=== PATIENT | male | born 1955 | race Hispanic/Latino ===

== ENCOUNTER 2016-11-04 07:59 | Inpatient (IN) | payer BC ==
[2016-11-04] MEDS ORDERED: Sodium Chloride 0.9% 1,000 ML IV STA (08:19)
--- NOTE | 2016-11-04 08:22 | ED PDOC ---
Arrival/HPI - General Chief Complaint: Syncope Time Seen by Provider: 11/04/16 08:10 Historian: Patient - History of Present Illness Narrative History of Present Illness (Text): 11/04/16 08:19 61 year old male, whose past medical history includes anxiety attacks and multiple umbilical hernia repair surgeries, presents to the emergency department after a near-syncope episode prior to arrival. Patient states that he 's been having frequent "dark tarry stool" that began two days ago. Patient reports he went to the bathroom and began sweating and once he began walking back to bed, felt lightheaded and began to black out. Patient reports to be back on Zoloft 100mg for a week from work stress after not taking it for a year. He reports to be a coffee drinker, takes Advil every couple days and limited food, but denies alcohol abuse, loss of consciousness, any fever, chills , chest pain, shortness of breath, nausea, vomiting, diarrhea, urinary symptoms , back pain, neck pain, headache, dizziness, or any other complaints. PMD: Dr. Wise Time/Duration: Other (yesterday ) Symptom Course: Unchanged Activities at Onset: Light Context: Work Past Medical History - Provider Review Nursing Documentation Reviewed: Yes - Cardiac Hx Cardiac Disorders: Yes (WPW) Hx Cardiac Arrhythmia: Yes - Pulmonary Hx Respiratory Disorders: No - Neurological Hx Neurological Disorder: No - HEENT Hx HEENT Disorder: No - Renal Hx Renal Disorder: No - Endocrine/Metabolic Hx Endocrine Disorders: No - Hematological/Oncological Hx Blood Disorders: No - Integumentary Hx Dermatological Disorder: No - Musculoskeletal/Rheumatological Hx Musculoskeletal Disorders: No - Gastrointestinal Hx Gastrointestinal Disorders: Yes (hernia) - Genitourinary/Gynecological Hx Genitourinary Disorders: No - Psychiatric Hx Psychophysiologic Disorder: Yes Hx Anxiety: Yes Hx Depression: Yes Hx Substance Use: No - Surgical History Hx Cholecystectomy: Yes Family/Social History - Physician Review Nursing Documentation Reviewed: Yes Family/Social History: No Known Family HX Smoking Status: Never Smoked Hx Alcohol Use: No Hx Substance Use: No Allergies/Home Meds Allergies/Adverse Reactions: Allergies Penicillins Allergy (Verified 11/04/16 08:05) ANAPHYLAXIS Sulfa (Sulfonamide Antibiotics) Allergy (Verified 11/04/16 08:05) RASH fruit Allergy (Uncoded 11/04/16 08:05) RASH Home Medications: Home Meds Medication Instructions Recorded Confirmed Sertraline [Zoloft] 100 mg PO DAILY 11/04/16 11/04/16 clonazePAM [Klonopin] 2 mg PO HS 11/04/16 11/04/16 Review of Systems - Physician Review All systems were reviewed & negative as marked: Yes - Review of Systems Constitutional: Other (Sweats). absent: Fevers Respiratory: absent: SOB Cardiovascular: Syncope (near-syncope). absent: Chest Pain Gastrointestinal: Stool Changes ("Dark tarry stool"), Appetite Changes (limited food). absent: Abdominal Pain, Nausea, Vomiting Genitourinary Male: absent: Dysuria, Frequency, Hematuria Musculoskeletal: absent: Back Pain, Neck Pain Neurological: absent: Headache, Dizziness, Other (Loss of consciousness) Physical Exam Vital Signs Reviewed: Yes Vital Signs Temp Pulse Resp BP Pulse Ox 11/04/16 10:36 98.2 F 76 19 119/51 L 99 11/04/16 09:22 86 19 117/75 97 11/04/16 08:27 61 19 115/65 98 11/04/16 08:09 97.6 F 84 15 103/66 98 Temperature: Afebrile Blood Pressure: Normal Respiratory Rate: Normal Appearance: Positive for: Well-Appearing, Non-Toxic, Comfortable Pain Distress: None Mental Status: Positive for: Alert and Oriented X 3 - Systems Exam Head: Present: Atraumatic, Normocephalic Pupils: Present: PERRL Extroacular Muscles: Present: EOMI Conjunctiva: Present: Other (conjuctiva pink) Mouth: Present: Moist Mucous Membranes Neck: Present: Normal Range of Motion Respiratory/Chest: Present: Clear to Auscultation, Good Air Exchange. No: Respiratory Distress, Accessory Muscle Use Cardiovascular: Present: Regular Rate and Rhythm, Normal S1, S2. No: Murmurs Abdomen: Present: Normal Bowel Sounds. No: Tenderness, Distention, Peritoneal Signs Rectal: Present: Melena (Guaiac positive). No: Hemorrhoids Back: Present: Normal Inspection Upper Extremity: Present: Normal Inspection. No: Cyanosis, Edema Lower Extremity: Present: Normal Inspection. No: Edema Neurological: Present: GCS=15, CN II-XII Intact, Speech Normal Skin: Present: Warm, Dry, Pale. No: Rashes Psychiatric: Present: Alert, Oriented x 3, Normal Insight, Normal Concentration Medical Decision Making ED Course and Treatment: 11/04/16 08:19 Impression: 61 year old male presents complaining of melena stool and near-syncope episode after taking Zoloft for a week. Differential Diagnosis included but are not limited to: GI Bleed VS Systematic Anemia VS Syncope Plan: -- EKG -- Labs -- CXR -- Protonix Inj -- IV Fluids -- Fingerstick -- Urinalysis -- Reassess and disposition Progress Notes: 11/04/16 09:16 Rectal exam performed by me, chaperoned by EMT Charles, which showed melena stool guaiac positive, but negative for hemorrhoid. Chest X-ray Dictated By: Rene Deluca MD Dictated Date/Time: 11/04/16 09:01 Other Findings: None Impression: No active disease 11/04/16 09:[address] Wise who is aware and agrees with the plan. Accepts patient into service. Patient will go to telemetry fpr GI bleed with active bleeding and syncope. Dr. Wise requested Dr. Armstrong and Dr. Lovell. Consults were placed. Patient is stable for telemetry. - Lab Interpretations Lab Results: 11/04/16 08:29 11/04/16 08:29 Lab Results 11/04/16 09:20: Blood Type Confirm A POSITIVE 11/04/16 08:29: Blood Type A POSITIVE, Antibody Screen Negative, BBK History Checked No verified bt 11/04/16 08:29: Sodium 140, Potassium 3.8, Chloride 104, Carbon Dioxide 26, Anion Gap 14, BUN 25 H, Creatinine 1.0, Est GFR ( Amer) > 60, Est GFR ( Non-Af Amer) > 60, Random Glucose 119 H, Calcium 8.8, Total Bilirubin 0.9, AST 29, ALT 31, Alkaline Phosphatase 53, Lactate Dehydrogenase 349, Total Creatine Kinase 170, Troponin I < 0.01, Total Protein 6.5, Albumin 3.9, Globulin 2.6, Albumin/Globulin Ratio 1.5, Amylase 84, Lipase 301 H 11/04/16 08:29: PT 10.9, INR 1.01, APTT 23.3 L 11/04/16 08:29: WBC 7.5, RBC 4.39, Hgb 13.7 L, Hct 38.8 L, MCV 88.4, MCH 31.2, MCHC 35.3, RDW 13.6, Plt Count 191, MPV 10.3, Gran % 62.3, Lymph % (Auto) 27.2, [place] % (Auto) 7.0 H, Eos % (Auto) 2.7, Baso % (Auto) 0.8, Gran # 4.65, Lymph # 2.0, [place] # 0.5, Eos # 0.2, Baso # 0.06 11/04/16 08:26: POC Glucose (mg/dL) 98 I have reviewed the lab results: Yes - RAD Interpretation Radiology Orders: 11/04/16 08:18 CHEST PORTABLE [RAD] Stat - EKG Interpretation Interpreted by ED Physician: Yes Type: 12 lead EKG - Medication Orders Current Medication Orders: Sodium Chloride (Sodium Chloride 0.45%) 1,000 mls @ 80 mls/hr IV .[id number] [facility] Last Admin: 11/04/16 11:37 Dose: 80 mls/hr Pantoprazole Sodium (Protonix 40mg Ivpb) 40 mg in 100 mls @ 20 mls/hr IVPB .Q5H [facility] Last Admin: 11/04/16 14:37 Dose: 20 mls/hr Discontinued Medications Sodium Chloride (Sodium Chloride 0.9%) 1,000 mls @ 999 mls/hr IV .Q1H1M STA Stop: 11/04/16 09:19 Last Admin: 11/04/16 08:52 Dose: 999 mls/hr Pantoprazole Sodium (Protonix Inj) 80 mg IVP STAT STA Stop: 11/04/16 08:18 Last Admin: 11/04/16 08:52 Dose: 80 mg Pantoprazole Sodium (Protonix Inj) 40 mg IVP BID STA Stop: 11/04/16 10:03 Last Admin: 11/04/16 10:24 Dose: - Scribe Statement The provider has reviewed the documentation as recorded by the Cataibmarcia Connelly All medical record entries made by the Cataibmarcia were at my direction and personally dictated by me. I have reviewed the chart and agree that the record accurately reflects my personal performance of the history, physical exam, medical decision making, and the department course for this patient. I have also personally directed, reviewed, and agree with the discharge instructions and disposition. Disposition/Present on Arrival - Present on Arrival Any Indicators Present on Arrival: No History of DVT/PE: No History of Uncontrolled Diabetes: No Urinary Catheter: No History of Decub. Ulcer: No History Surgical Site Infection Following: None - Disposition Have Diagnosis and Disposition been Completed?: Yes Diagnosis: GI bleed, Syncope Disposition: HOSPITALIZED Disposition Time: 09:56 Patient Plan: Admission Condition: GOOD
[2016-11-04 08:35] LABS: BASO # 0.06 K/mm3 (0.0-2.0); BASO % 0.8 % (0.0-3.0); EOS # 0.2 (0.0-0.7); EOS % 2.7 % (1.5-5.0); GRAN # 4.65 (1.4-6.5); GRAN % 62.3 % (50.0-68.0); HEMATOCRIT 38.8 % (42.0-52.0); LYMPH % 27.2 % (22.0-35.0); MEAN CELL VOLUME 88.4 fl (80.0-105.0); MEAN CORPUSCULAR HEMOGLOBIN 31.2 pg (25.0-35.0); MEAN CORPUSCULAR HGB CONC 35.3 g/dl (31.0-37.0); MEAN PLATELET VOLUME 10.3 fl (7.0-11.0); MONO # 0.5 (0.1-0.6); RED CELL DISTRIBUTION WIDTH 13.6 % (11.5-14.5); WHITE BLOOD COUNT 7.5 10^3/ul (4.5-11.0)
[2016-11-04 08:45] LABS: INR 1.01 (0.93-1.08); PARTIAL THROMBOPLASTIN TIME 23.3 Seconds (23.7-30.8)
[2016-11-04 08:51] LABS: ALB/GLOB RATIO 1.5 (1.1-1.8); ALKALINE PHOSPHATASE 53 U/L (38-126); ALT/SGPT 31 U/L (7-56); AMYLASE 84 U/L (35-125); AST/SGOT 29 U/L (17-59); BILIRUBIN,TOTAL 0.9 mg/dL (0.2-1.3); BLOOD UREA NITROGEN 25 mg/dL (7-21); CALCIUM 8.8 mg/dL (8.4-10.5); CARBON DIOXIDE 26 mmol/L (21-33); CHLORIDE 104 mmol/L (98-107); GFR AFRICAN-AMERICAN > 60; GLUCOSE,RANDOM 119 mg/dL (70-110); LIPASE 301 U/L (23-300); POTASSIUM 3.8 mmol/L (3.6-5.0); SODIUM 140 mmol/L (132-148); TOTAL PROTEIN 6.5 g/dL (5.8-8.3)
[2016-11-04 09:02] LABS: TROPONIN I < 0.01 ng/mL
--- NOTE | 2016-11-04 09:02 | RAD ---
HISTORY: syncope COMPARISON: No prior. FINDINGS: LUNGS: No active pulmonary disease. PLEURA: No significant pleural effusion identified, no pneumothorax apparent. CARDIOVASCULAR: Normal. OSSEOUS STRUCTURES: No significant abnormalities. VISUALIZED UPPER ABDOMEN: Normal. OTHER FINDINGS: None. IMPRESSION: No active disease.
[2016-11-04] MEDS: Sodium Chloride 0.45% 1,000 ML IV SCH ×2 (11:37→22:37)
[2016-11-04 12:46] VITALS: BMI 25.5
--- NOTE | 2016-11-04 13:29 | HP ---
HISTORY OF PRESENT ILLNESS: I know Crispin for a very long time. He comes to the office. He presents to the emergency room with his with a syncopal episode, near syncope, with dark-tarry stools that began 2 days ago, also with sweating. He also started Zoloft 100 mg after too much stress at work. He has been off this for a year. He also takes Advil every day for chronic back pain he has. He comes in with dark black stools, in the ER, guaiac positive and near syncope, first time he has that. PAST MEDICAL HISTORY: He has a history of Angela Parkinson's White arrhythmia. He does have a hernia for many years. He has had anxious and depression. PAST SURGICAL HISTORY: He has had a cholecystectomy in the past. FAMILY HISTORY: Hypertension in the family. SOCIAL HISTORY: Never smoked. No alcohol. No drugs. ALLERGIES: HE HAS ALLERGIES TO PENICILLIN, SULFA AND FRUIT. MEDICATIONS: He was taking Zoloft 100 mg which he started about a week ago and Klonopin 2 mg at bedtime from a psychiatrist. REVIEW OF SYSTEMS: No acute vision or hearing changes. No sore throat. No neck pain. He was sweating. He did loose consciousness almost, witnessed it and felt it was nearest to his bed. No shortness of breath. No chest pain. No palpitations. He is stating having dark tarry stools for 2 days. Not eating that much. No nausea or vomiting. No problems urinating. He does have a chronic back pain, but none at this time. No headache or dizziness. There is questionable loss of consciousness. Story changed for few times. PHYSICAL EXAMINATION GENERAL: He is well appearing and comfortable at this time. Alert and oriented x3. VITAL SIGNS: He has 97.6 temperature, 84 pulse, 15 respiratory rate, 115/65 blood pressure, and 98% O2 saturations on room air. HEENT: His head is atraumatic and normocephalic. Extraocular muscles are intact. Pupils are equal and reactive to light and accommodation. Throat is moist. NECK: Supple. HEART: Regular rate, normal S1 and S2 at this time. LUNGS: Decreased breath sounds. Clear to auscultation. No wheezes. No rhonchi. No rales. ABDOMEN: Completely soft, nontender, and positive bowel sounds. No guarding. No rebound. No CVA tenderness. He points to this hernia as in his belly, it has been there for very long time. RECTAL: Rectal exam done in emergency room which is guaiac positive with melena and black stools. EXTREMITIES: Legs at this time move all, in all directions with no problems. He has no edema. NEUROLOGIC: GCS is 15. Cranial nerves II through XII grossly intact. Normal speech. Alert and oriented x3. SKIN: Warm and dry. No rash. No ulcers. LYMPH: Thyroid midline. No palpable or appreciable lymphadenopathy. LABORATORY DATA: He has multiple test done. He has 140 sodium, potassium of 3.8, BUN of 25, creatinine of 1, GFR is greater than 60, sugar is 119, calcium is 8.8, and total bilirubin 0.9. AST is 29, ALT is 31, alkaline phosphatase is 53, and lactic dehydrogenase is 349. Total creatine kinase is 170. Troponin is less than 0.01. Total protein is 6.5. Albumin is 3.9 and globulin is 2.6. Amylase is 84 and lipase is up at 301. INR is 1.01. He has hemoglobin of 13.7, and hematocrit of 38.8, I checked 2 days of black stools and 191 platelets. IMPRESSION AND PLAN: I am going to order a CAT scan of his abdomen and pelvis. Make him n.p.o. and intravenous fluids. ES with Dr. Zapien who is his inspector missile and I have called a neurology for his near syncopal episode. We will check his laboratories tomorrow. Keep him as comfortable as possible. Hussein Wise DO MTDD
--- NOTE | 2016-11-04 14:32 | CT ---
PROCEDURE: CT Abdomen and Pelvis without intravenous contrast HISTORY: gi bleed COMPARISON: None. TECHNIQUE: Without contrast. Contrast Dose: Radiation dose: Total exam DLP = 491 mGy-cm. This CT exam was performed using one or more of the following dose reduction techniques: Automated exposure control, adjustment of the mA and/or kV according to patient size, and/or use of iterative reconstruction technique. FINDINGS: LOWER THORAX: Unremarkable. LIVER: Unremarkable. No gross lesion or ductal dilatation. GALLBLADDER AND BILE DUCTS: Gallbladder removed PANCREAS: Unremarkable. No gross lesion or ductal dilatation. SPLEEN: Unremarkable. ADRENALS: Unremarkable. No mass. KIDNEYS AND URETERS: Unremarkable. No hydronephrosis. No solid mass. VASCULATURE: Unremarkable. No aortic aneurysm. BOWEL: Unremarkable. No obstruction. No gross mural thickening. APPENDIX: Unremarkable. Normal appendix. PERITONEUM: Unremarkable. No free fluid. No free air. There is a small ventral hernia measuring 3 cm in diameter. This contains a segment of bowel but there is no evidence of obstruction. Findings are seen on axial image 91 LYMPH NODES: Unremarkable. No enlarged lymph nodes. BLADDER: Unremarkable. REPRODUCTIVE: Unremarkable. BONES: No acute fracture. OTHER FINDINGS: None. IMPRESSION: Small midline ventral hernia without evidence of obstruction.
[2016-11-04] MEDS: Pantoprazole 40mg/100ml IVPB 40 MG/100 ML BAG IVPB SCH ×3 (14:37→22:37)
[2016-11-04 15:42] LABS: HEMATOCRIT 36.7 % (42.0-52.0)
--- NOTE | 2016-11-04 18:11 | CARD ---
APPROVED REPORT EKG Measurement Heart [id number] <Conclusion> Sinus rhythm with fusion complexes Otherwise normal ECG
[2016-11-04 20:55] LABS: HEMATOCRIT 37.6 % (42.0-52.0)
--- NOTE | 2016-11-05 00:03 | CON ---
DATE: 11/04/2016 REASON FOR CONSULTATION: GI bleeding. HISTORY OF PRESENT ILLNESS: This 61-year-old patient with a history of anxiety, recently started on Zoloft a week ago, noticed dark stool on Saturday evening that was two days ago, small amounts like smears of black stool. Yesterday, he continued to have episodes of this black stool, came to the emergency room this morning. The patient had a large amount of dark black tarry stools at 9 a.m. and he also felt very dizzy. The patient has history of some hamstring strain and he has been taking Advil for nearly two months up to 600 mg a day. No complaints of abdominal pain. No vomiting. No similar previous episodes. OTHER PAST MEDICAL HISTORY: As above. History of umbilical hernia surgery done in the past. History of cardiac dysrhythmia, Mmcp-Mxybwajvp-Ucuau syndrome, also history of status post cholecystectomy, anxiety, and depression. FAMILY HISTORY: Noncontributory. SOCIAL HISTORY: Denies smoking. No alcohol. REVIEW OF SYSTEMS: Positive as above. Other systems reviewed. ALLERGIES: HE IS ALLERGIC TO PENICILLIN AND SULFA. PHYSICAL EXAMINATION: GENERAL: The patient is lying on the bed, not in acute distress. VITAL SIGNS: Temperature 97.9, blood pressure 130/67, pulse 85. HEENT: Atraumatic, anicteric. NECK: Supple. HEART: S1 and S2 heard. LUNGS: Bilateral air entry present. ABDOMEN: Soft, there was no mass palpable. No tenderness. EXTREMITIES: No edema. NEUROLOGIC: Alert and oriented. Moves all the extremities. LABORATORY DATA: Hemoglobin 13.7, hematocrit 38.8, WBC 7.5, platelets 191. BUN 25, creatinine 1.0. Lipase mildly elevated, 301. IMPRESSION: This 61-year-old patient with history of nonsteroidal antiinflammatory drug use for nearly about two months, started on Zoloft for the last week ago, now has episodes of melena, positive history of upper gastrointestinal bleeding. The patient appears to be hemoglobin initially was 13.7, but the patient did have another episode of black stool. He had dizziness. The most likely cause is probably the upper gastrointestinal bleeding from the peptic ulcerations due to relative combination of the nonsteroidal antiinflammatory drug plus Zoloft. Zoloft also can cause platelet dysfunction and causes inhibition of the platelet aggregation. PLAN: 1. The plan is to check orthostatics. 2. Follow up of the hemoglobin, hematocrit closely. 3. Keep the patient n.p.o. 4. If any significant bleeding, further bleeding or drop in blood count, we will consider transferring the patient to the ICU. 5. We will consider upper GI endoscopy based on the clinical course and the timing. The patient is also scheduled for having a CAT scan of the abdomen and the patient did have a contrast finished just before I saw the patient today. Awaiting for the patient to go down for the CAT scan. We will continue to closely follow up his care and suggest further management based on the clinical course. I have discussed this case also with Dr. Wise. Thank you very much for allowing us to participate in the care of the patient. Nidia Zapien MD
[2016-11-05 00:11] LABS: URINE BILIRUBIN NEGATIVE (NEGATIVE); URINE BLOOD TRACE-INTACT (NEGATIVE); URINE GLUCOSE (UA) NEGATIVE (NEGATIVE); URINE KETONE 40 mg/dL (NEGATIVE); URINE LEUKOCYTE ESTERASE NEGATIVE Leu/uL (NEGATIVE); URINE PROTEIN NEGATIVE mg/dL (<30 mg/dL)
[2016-11-05 00:15] LABS: URINE APPEARANCE SL CLOUDY (CLEAR); URINE COLOR YELLOW (YELLOW)
[2016-11-05 00:21] LABS: URINE BACTERIA FEW (NEG); URINE WBC 0 - 2 /hpf (0-6)
[2016-11-05 02:47] LABS: HEMATOCRIT 37.3 % (42.0-52.0)
[2016-11-05] MEDS: Pantoprazole 40mg/100ml IVPB 40 MG/100 ML BAG IVPB SCH (04:12)
--- NOTE | 2016-11-05 06:31 | CON ---
DATE: HISTORY OF PRESENT ILLNESS: This is a 61-year-old white male with a past medical history of WPW syndrome and came to hospital with a dark stool, which started two days ago and had a near syncopal episode and called to evaluate the patient. GI workup on the way and no more passing out spells. The patient was Coag-positive. PAST MEDICAL HISTORY: WPW syndrome, and the patient has anxiety and depression. PAST SURGICAL HISTORY: Status post cholecystectomy. ALLERGIES: PENICILLIN, SULFA. REVIEW OF SYSTEMS: A 10-point review of system was negative except episode of near syncopal episode. PHYSICAL EXAMINATION: HEENT: Normocephalic, atraumatic. NECK: Supple. NEUROLOGIC: Alert, awake, and oriented x3. No aphasia. Cranial nerves II through XII are tested. Pupils are reactive. EOM intact. Visual burleson full. No facial asymmetry. Tongue midline. Motor examination, spontaneous movement of all the extremities noted. Deep tendon reflexes is 1+. Both plantars are downgoing. Sensory appears intact. Cerebellar and gait deferred. IMPRESSION AND PLAN: Presyncopal episode possibly secondary to gastrointestinal bleed, guaiac positive and workup in progress. We ordered a CAT scan of the head without contrast. We will follow up. Wallace Mae MD
[2016-11-05 06:54] LABS: HEMATOCRIT 36.6 % (42.0-52.0); MEAN CELL VOLUME 90.6 fl (80.0-105.0); MEAN CORPUSCULAR HEMOGLOBIN 30.9 pg (25.0-35.0); MEAN CORPUSCULAR HGB CONC 34.2 g/dl (31.0-37.0); MEAN PLATELET VOLUME 10.6 fl (7.0-11.0); RED CELL DISTRIBUTION WIDTH 13.8 % (11.5-14.5); WHITE BLOOD COUNT 8.2 10^3/ul (4.5-11.0)
[2016-11-05 07:21] LABS: ALB/GLOB RATIO 1.4 (1.1-1.8); ALKALINE PHOSPHATASE 54 U/L (38-126); ALT/SGPT 31 U/L (7-56); AST/SGOT 27 U/L (17-59); BILIRUBIN,TOTAL 1.5 mg/dL (0.2-1.3); BLOOD UREA NITROGEN 19 mg/dL (7-21); CALCIUM 8.4 mg/dL (8.4-10.5); CARBON DIOXIDE 28 mmol/L (21-33); CHLORIDE 106 mmol/L (98-107); GFR AFRICAN-AMERICAN > 60; GLUCOSE,RANDOM 85 mg/dL (70-110); POTASSIUM 3.9 mmol/L (3.6-5.0); SODIUM 141 mmol/L (132-148); TOTAL PROTEIN 6.1 g/dL (5.8-8.3)
[2016-11-05] MEDS ORDERED: Propofol 10 mg/ml Inj (20 ML) ONE (08:53)
[2016-11-05] MEDS ORDERED: Sodium Chloride 0.9% 1,000 ML IV SCH (09:15)
--- NOTE | 2016-11-05 11:02 | PN ---
DATE: 11/05/2016 SUBJECTIVE: Mr. Daley is sleeping this morning in bed. He states he didn't gets much sleep last night till about 4 in the morning, but he got some rest this morning. No pain this morning. He is comfortable; asking questions below all the tests he had done. PHYSICAL EXAMINATION VITAL SIGNS: Temperature 98.2, 90 pulse, 113/56 blood pressure, 22 respiratory rate, and 96% on O2 saturation on room air. GENERAL: Does not have much of an appetite this morning. He is currently on Klonopin at night time, Protonix IV, and IV fluids. LABORATORY DATA: He has an 8.2 white count this morning, 12.5 hemoglobin, 36.6 hematocrit with 215 platelets. He has 1.01 INR. He has 141 sodium, potassium 3.9, BUN 19, creatinine 1. GFR is greater than 60. Sugar is 85, calcium is 8.4, total bilirubin is 1.5, AST is 27, ALT 31, alkaline phosphatase is 64. Troponin was less than 0.01, total protein is 6.1. ASSESSMENT AND PLAN: He is comfortable this morning. He has been seen by GI. Thinking about doing an upper endoscopy. He had a CAT scan of the abdomen and pelvis, which showed a ventral hernia. Neuro also saw Crispin. CT scan of the head ordered. If I do not do any endoscopy today, his CAT scan is normal and he is feeling better. I might have to make him on observation and possibly discharge him after he eats or may be I will take 24 hours more to get to that situation. Anyway, we will continue with aggressive treatment and care. He is still n.p.o., IV Protonix, IV fluids. He is starting to get better and he is n.p.o. He did have maximum amounts of blood when he came to the emergency room and stool. We will continue with aggressive treatment and care. Hussein Wise DO
[2016-11-05 13:39] LABS: HEMATOCRIT 38.3 % (42.0-52.0)
--- NOTE | 2016-11-05 14:04 | CT ---
PROCEDURE: CT HEAD WITHOUT CONTRAST. HISTORY: syncopy COMPARISON: None available. TECHNIQUE: Axial computed tomography images were obtained through the head/brain without intravenous contrast. Radiation dose: Total exam DLP = 677 mGy-cm. This CT exam was performed using one or more of the following dose reduction techniques: Automated exposure control, adjustment of the mA and/or kV according to patient size, and/or use of iterative reconstruction technique. FINDINGS: HEMORRHAGE: No intracranial hemorrhage. BRAIN: No mass effect or edema. No atrophy or chronic microvascular ischemic changes. VENTRICLES: Unremarkable. No hydrocephalus. CALVARIUM: Unremarkable. PARANASAL SINUSES: Unremarkable as visualized. No significant inflammatory changes. MASTOID AIR CELLS: Unremarkable as visualized. No inflammatory changes. OTHER FINDINGS: None. IMPRESSION: No acute findings
[2016-11-05] MEDS ORDERED: Peg-Electrolyte Oral Soln 4L (Golytely) PO ONE (16:19)
[2016-11-05] MEDS: Sodium Chloride 0.45% 1,000 ML IV SCH (17:41)
--- NOTE | 2016-11-05 19:18 | CP.PCM.PN ---
<Clark Estevez - Last Filed: 11/05/16 19:08> Subjective - Date & Time of Evaluation Date of Evaluation: 11/05/16 Time of Evaluation: 09:20 - Subjective Subjective: Neurology Progress Note for Dr. Mae Service Patient seen and examined at bedside. No acute events reported overnight, and no acute complaints from patient at time of exam. Feeling much improved, no further episodes of diaphoresis, vision blacking out, syncope, falls, or weakness. No further melanotic bowel movements since arriving to floor as per pt. S/p EGD, awake and alert without any signs of residual effects from anesthesia. Objective - Vital Signs/Intake and Output Vital Signs (last 24 hours): Temp Pulse Resp BP Pulse Ox 97.7 F 91 H 20 104/69 98 11/05/16 11:44 11/05/16 14:00 11/05/16 11:44 11/05/16 11:44 11/05/16 10:12 Intake and Output: 11/05/16 11/06/16 18:59 06:59 Intake Total 75 Balance 75 - Medications Medications: Current Medications Alprazolam (Xanax) 0.25 mg PO TID PRN; Protocol PRN Reason: Anxiety Stop: 11/12/16 14:01 Last Admin: 11/05/16 18:30 Dose: 0.25 mg Clonazepam (Klonopin) 2 mg PO HS GRECIA PRN Reason: Protocol Last Admin: 11/04/16 23:32 Dose: 2 mg Sodium Chloride (Sodium Chloride 0.9%) 1,000 mls @ 100 mls/hr IV .Q10H GRECIA Sodium Chloride (Sodium Chloride 0.45%) 1,000 mls @ 80 mls/hr IV .[id number] GRECIA Last Admin: 11/05/16 17:41 Dose: 80 mls/hr Pantoprazole Sodium (Protonix Ec Tab) 40 mg PO DAILY GRECIA - Labs Labs: 11/05/16 13:34 11/05/16 06:30 PT 10.9 Seconds (9.9-11.8) 11/04/16 08:29 INR 1.01 (0.93-1.08) 11/04/16 08:29 APTT 23.3 Seconds (23.7-30.8) L 11/04/16 08:29 - Constitutional Appears: Well, Non-toxic, No Acute Distress - Head Exam Head Exam: ATRAUMATIC, NORMAL INSPECTION, NORMOCEPHALIC - Eye Exam Eye Exam: EOMI, Normal appearance, PERRL. absent: Conjunctival injection, Scleral icterus Pupil Exam: NORMAL ACCOMODATION, PERRL. absent: Fixed, Irregular, Unequal Additional comments: No pale conjunctiva - ENT Exam ENT Exam: Mucous Membranes Moist. absent: Mucous Membranes Dry - Neck Exam Neck Exam: Full ROM, Normal Inspection - Respiratory Exam Respiratory Exam: Clear to Ausculation Bilateral, NORMAL BREATHING PATTERN. absent: Accessory Muscle Use, Chest Wall Tenderness, Decreased Breath Sounds, Rales, Rhonchi, Wheezes - Cardiovascular Exam Cardiovascular Exam: REGULAR RHYTHM, RRR, +S1, +S2. absent: Bradycardia, Tachycardia, Irregular Rhythm, JVD, +S4 - GI/Abdominal Exam GI & Abdominal Exam: Soft, Normal Bowel Sounds. absent: Distended, Firm, Guarding, Rigid, Tenderness, Diminished Bowel Sounds, Hyperactive Bowel Sounds, Hypoactive Bowel Sounds - Extremities Exam Extremities Exam: Normal Capillary Refill, Normal Inspection. absent: Calf Tenderness, Pedal Edema, Tenderness - Neurological Exam Neurological Exam: Alert, Awake, CN II-XII Intact, Oriented x3 - Psychiatric Exam Psychiatric exam: Normal Affect, Normal Mood - Skin Skin Exam: Dry, Intact, Normal Color, Warm. absent: Pallor, Pallor, Petechiae Assessment and Plan - Assessment and Plan (Free Text) Assessment: This is a 61 yo M with PMH of WPW, anxiety, depression who presented with near- syncopal episode after having multiple episodes of melanotic stool x2-3 days. His syncopal episode is most likely orthostatic in nature 2/2 hypovolemia from diarrhea and poor PO intake, vs vasovagal due to multiple episodes of diarrhea and near-syncopal episode shortly after moving his bowels (unclear if straining) . Improvement of his symptoms with IV hydration and resting in bed further support this etiology. Neurologically intact and stable. Plan: 1) Maintain SBP >= 120's, avoid acute hypotensive episodes 2) Orthostatics 3) Gently hydrate 4) PT/OT 5) Medical management as per GI and Primary team Patient reviewed and discussed with attending, Dr. Mae. Neurologically stable at this time. <Ruben Mae - Last Filed: 11/06/16 00:26> Objective - Vital Signs/Intake and Output Vital Signs (last 24 hours): Temp Pulse Resp BP Pulse Ox 97.4 F L 96 H 20 131/81 98 11/05/16 18:30 11/05/16 18:30 11/05/16 18:30 11/05/16 18:30 11/05/16 10:12 Intake and Output: 11/05/16 11/06/16 18:59 06:59 Intake Total 75 Balance 75 - Medications Medications: Current Medications Alprazolam (Xanax) 0.25 mg PO TID PRN; Protocol PRN Reason: Anxiety Stop: 11/12/16 14:01 Last Admin: 11/05/16 18:30 Dose: 0.25 mg Clonazepam (Klonopin) 2 mg PO HS GRECIA PRN Reason: Protocol Last Admin: 11/04/16 23:32 Dose: 2 mg Sodium Chloride (Sodium Chloride 0.45%) 1,000 mls @ 80 mls/hr IV .[id number] GRECIA Last Admin: 11/05/16 17:41 Dose: 80 mls/hr Pantoprazole Sodium (Protonix Ec Tab) 40 mg PO DAILY GRECIA - Labs Labs: 11/05/16 19:13 11/05/16 06:30 PT 10.9 Seconds (9.9-11.8) 11/04/16 08:29 INR 1.01 (0.93-1.08) 11/04/16 08:29 APTT 23.3 Seconds (23.7-30.8) L 11/04/16 08:29 Attending/Attestation - Attestation I have personally seen and examined this patient.: Yes I have fully participated in the care of the patient.: Yes I have reviewed all pertinent clinical information, including history, physical exam and plan: Yes
[2016-11-05 19:20] LABS: HEMATOCRIT 39.7 % (42.0-52.0)
--- NOTE | 2016-11-05 22:22 | CP.PCM.PN ---
Subjective - Date & Time of Evaluation Date of Evaluation: 11/05/16 Time of Evaluation: 15:15 - Subjective Subjective: Had an episode of large black tarry stool patient was very concerned no complaints of any abdominal pain Objective - Vital Signs/Intake and Output Vital Signs (last 24 hours): Temp Pulse Resp BP Pulse Ox 97.7 F 93 H 20 104/69 98 11/05/16 11:44 11/05/16 18:00 11/05/16 11:44 11/05/16 11:44 11/05/16 10:12 Intake and Output: 11/05/16 11/06/16 18:59 06:59 Intake Total 75 Balance 75 - Medications Medications: Current Medications Alprazolam (Xanax) 0.25 mg PO TID PRN; Protocol PRN Reason: Anxiety Stop: 11/12/16 14:01 Last Admin: 11/05/16 18:30 Dose: 0.25 mg Clonazepam (Klonopin) 2 mg PO HS GRECIA PRN Reason: Protocol Last Admin: 11/04/16 23:32 Dose: 2 mg Sodium Chloride (Sodium Chloride 0.45%) 1,000 mls @ 80 mls/hr IV .[id number] GRECIA Last Admin: 11/05/16 17:41 Dose: 80 mls/hr Pantoprazole Sodium (Protonix Ec Tab) 40 mg PO DAILY GRECIA - Labs Labs: 11/05/16 19:13 11/05/16 06:30 PT 10.9 Seconds (9.9-11.8) 11/04/16 08:29 INR 1.01 (0.93-1.08) 11/04/16 08:29 APTT 23.3 Seconds (23.7-30.8) L 11/04/16 08:29 - Constitutional Appears: No Acute Distress - Head Exam Head Exam: ATRAUMATIC, NORMOCEPHALIC - Eye Exam Eye Exam: EOMI, PERRL. absent: Scleral icterus - Neck Exam Neck Exam: Normal Inspection - Respiratory Exam Respiratory Exam: NORMAL BREATHING PATTERN. absent: Rales, Rhonchi - Cardiovascular Exam Cardiovascular Exam: +S1, +S2. absent: JVD - GI/Abdominal Exam GI & Abdominal Exam: Soft, Normal Bowel Sounds. absent: Tenderness, Mass Assessment and Plan - Assessment and Plan (Free Text) Assessment: The patient underwent upper GI endoscopy area todayOn to have a superficial ulcerations in the proximal antrum and body. Endoscopy revealed a no blood in the stomach. Clear bile. However patient did have a large episodes of black tarry stool witnessed by the nurse. Patient is concerned and anxious. History of NSAID use and also Zoloft can cause platelet dysfunction and NSAID can also cause colonic ulcerations and platelet . Patient is also anxious and nervous In view of the above event, it is reasonable to concel discharge and consider colonoscopy evaluation to rule out any right colonic lesions which can cause melena. We'll continue Protonix Discussed with the Dr. Wise. Patient is scheduled for colonoscopy in a.m. the bowel preparation today. If the patient develops any active ongoing bleeding will request for a bleeding scan and also consider transferring to the unit
[2016-11-06] MEDS: Sodium Chloride 0.45% 1,000 ML IV SCH (00:32)
[2016-11-06 08:42] LABS: HEMATOCRIT 34.1 % (42.0-52.0); MEAN CELL VOLUME 89.7 fl (80.0-105.0); MEAN CORPUSCULAR HEMOGLOBIN 30.8 pg (25.0-35.0); MEAN CORPUSCULAR HGB CONC 34.3 g/dl (31.0-37.0); MEAN PLATELET VOLUME 10.3 fl (7.0-11.0); RED CELL DISTRIBUTION WIDTH 13.9 % (11.5-14.5); WHITE BLOOD COUNT 7.6 10^3/ul (4.5-11.0)
[2016-11-06 08:50] LABS: ALB/GLOB RATIO 1.5 (1.1-1.8); ALKALINE PHOSPHATASE 55 U/L (38-126); ALT/SGPT 32 U/L (7-56); AST/SGOT 38 U/L (17-59); BLOOD UREA NITROGEN 11 mg/dL (7-21); CALCIUM 8.4 mg/dL (8.4-10.5); CARBON DIOXIDE 30 mmol/L (21-33); CHLORIDE 106 mmol/L (98-107); GFR AFRICAN-AMERICAN > 60; GLUCOSE,RANDOM 81 mg/dL (70-110); POTASSIUM 3.8 mmol/L (3.6-5.0); SODIUM 143 mmol/L (132-148); TOTAL PROTEIN 5.8 g/dL (5.8-8.3)
[2016-11-06] MEDS ORDERED: Propofol 10 mg/ml Inj (20 ML) ONE (15:14)
[2016-11-06] MEDS ORDERED: Lidocaine 2% Inj (20ml) ONE (15:35)
[2016-11-06 15:38] VITALS: TEMP 98.4
[2016-11-06] MEDS ORDERED: Sodium Chloride 0.9% 1,000 ML IV SCH (16:15)
[2016-11-06 16:24] VITALS: O2SAT 99
[2016-11-06 16:54] VITALS: BP 132/77; PULSE 81; RESP 16
[2016-11-06] MEDS: Pantoprazole 40 mg EC Tab PO SCH ×2 (18:10→18:50)
--- NOTE | 2016-11-07 04:04 | DS ---
HISTORY OF PRESENT ILLNESS: He has been having black tarry stools now for two days. The black tarry stools at this point are clear about 4 hours ago after taking the GoLYTELY. 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 The upper endoscopy yesterday was okay, so doing a colonoscopy this morning. He is on IV fluids, GoLYTELY, Klonopin, Protonix and Xanax. He is comfortable. Slept fairly well last night despite the diarrhea from the GoLYTELY. PHYSICAL EXAMINATION: VITAL SIGNS: Had 97.4 temp, 81 pulse, 131/81 blood pressure, and 20 respiratory rate. HEENT: Head is atraumatic, normocephalic. Throat is moist. NECK: Supple. HEART: Regular rate. LUNGS: Clear to auscultation. ABDOMEN: Soft and nontender. Positive bowel sounds. EXTREMITIES: No edema. LABORATORY DATA: His last SMA-20 was good. His last hemoglobin was 13.8, hematocrit 39.7, so he is staying stable . His labs pending this morning and a colonoscopy this morning. ASSESSMENT AND PLAN: I am hoping everything goes well and we could discharge him to the home with the same medications. I am going to see him in the office tomorrow and he is here for GI bleed, syncope, and anxiety. Hussein Wise DO
== END 2016-11-06 19:27 | disposition home or self-care (01) | DRG 379 ==
LOC: ED 07:59 → ERH 09:41 → 2RSO 10:48
PROVIDERS: ADMIT Family Medicine; ATTEND Family Medicine
PROC: 0DJ08ZZ Inspection of Upper Intestinal Tract, Via Natural or Artificial Opening Endoscopic (ICD-10-PCS; 2016-11-06)
PROC: 0DJD8ZZ Inspection of Lower Intestinal Tract, Via Natural or Artificial Opening Endoscopic (ICD-10-PCS; principal; 2016-11-06 14:30)
DX: K92.2 Gastrointestinal hemorrhage, unspecified (principal); K25.9 Gastric ulcer, unspecified as acute or chronic, without hemorrhage or perforation; R55 Syncope and collapse; E86.1 Hypovolemia; F41.9 Anxiety disorder, unspecified; I95.1 Orthostatic hypotension; G89.29 Other chronic pain; M54.9 Dorsalgia, unspecified; K43.9 Ventral hernia without obstruction or gangrene; Z79.899 Other long term (current) drug therapy; Z82.49 Family history of ischemic heart disease and other diseases of the circulatory system; Z90.49 Acquired absence of other specified parts of digestive tract; F32.89 Other specified depressive episodes; R40.2412 Glasgow coma scale score 13-15, at arrival to emergency department; Z88.0 Allergy status to penicillin; Z88.2 Allergy status to sulfonamides; Z91.018 Allergy to other foods; K57.30 Diverticulosis of large intestine without perforation or abscess without bleeding; K64.8 Other hemorrhoids

== ENCOUNTER 2017-02-11 08:37 | Day surgery (SDC) | payer BC ==
[2017-02-06 10:24] VITALS: BMI 25.1
[2017-02-11] MEDS ORDERED: Bupivacaine 0.5% Inj(30mL) ONE ×2 (12:28→12:37)
[2017-02-11] MEDS ORDERED: Propofol 10 mg/ml Inj (20 ML) ONE ×2 (12:36→13:21)
[2017-02-11] MEDS ORDERED: Ciprofloxacin 400mg/200ml D5W 400 MG/200 ML BAG IVPB ONE (12:46)
[2017-02-11] MEDS ORDERED: Lidocaine 2% Inj (20ml) ONE (12:46)
[2017-02-11] MEDS ORDERED: Midazolam 2 MG/2 ML VIAL ONE (12:47)
[2017-02-11] MEDS ORDERED: Vancomycin 1 g Inj ONE (13:16)
[2017-02-11] MEDS ORDERED: Lactated Ringer's 1,000 ML IV SCH (14:15)
[2017-02-11] MEDS ORDERED: HYDROmorphone 0.5 mg/0.5 ml ISec IVP PRN (14:15)
--- NOTE | 2017-02-11 14:17 | PCM.SURG1 ---
Surgeon's Initial Post Op Note - Surgeon's Notes Surgeon: Dr. Hopkins System Support Analyst: Adam Tellez PGY2, PGY1 Type of Anesthesia: General Endo Pre-Operative Diagnosis: Ventral hernia Operative Findings: ventral hernia Post-Operative Diagnosis: Same Operation Performed: ventral hernia repair open Specimen/Specimens Removed: old sutures. Estimated Blood Loss: EBL {In ML}: 50 Blood Products Given: N/A Drains Used: No Drains Post-Op Condition: Good Date of Surgery/Procedure: 02/11/17 Time of Surgery/Procedure: 14:17
[2017-02-11] MEDS ORDERED: Oxycodone/Acetaminophen 5/325 mg Tab PO PRN (14:18)
[2017-02-11] MEDS ORDERED: HYDROmorphone 1 mg/ml ISec IVP PRN (14:18)
[2017-02-11] MEDS ORDERED: Vancomycin 500mg in NS 500 MG/100 ML BAG IVPB SCH ×2 (14:31→22:00)
[2017-02-11 14:45] VITALS: TEMP 97.4
[2017-02-11 15:26] VITALS: RESP 18; O2SAT 96
[2017-02-11 17:28] VITALS: BP 132/70; PULSE 73
--- NOTE | 2017-02-20 13:58 | OP ---
PROCEDURE DATE: 02/11/2017 PREOPERATIVE DIAGNOSIS: Recurrent ventral hernia. POSTOPERATIVE DIAGNOSIS: Recurrent ventral hernia. OPERATION PERFORMED: Hernia repair with an external onlay mesh that was absorbable. DESCRIPTION OF PROCEDURE: In the operating room, the patient was identified by name, name of procedure, laterality, my lis and the consent. The patient has a history of 3 hernias, 2 recurrent in the same area and did not want a permanent mesh under any circumstances. Did not want a ventral laparoscopy. The hernia was marked preoperatively. The abdomen was then prepped and draped in usual manner and after the successful time-out, the old incision was opened and the hernia sacs developed circumferentially. The hernia sacs were developed and the edges were refreshened. On either side, the external oblique was divided in an effort to free up the midline and this was done very nicely. The subcutaneous tissue was divided to expose this making large flaps and the advancement was done very nicely. This allowed primary closure with #1 Novafil, which was done in a running manner throughout the incision. It was done without tension. The incision was then noted to place the mesh. The absorbable mesh on top of the incision, it was stapled in place. Kane was placed through a separate stab. An incision was closed with Vicryl followed by aaron, well tolerated. The patient was taken to the recovery room in good condition and sponge and needle count was declared correct. Iggy Hopkins MD
== END 2017-02-11 17:37 | disposition home or self-care (01) ==
LOC: SDS 08:37
PROVIDERS: ATTEND Surgery
DX: K43.2 Incisional hernia without obstruction or gangrene (principal); Z88.0 Allergy status to penicillin; K57.30 Diverticulosis of large intestine without perforation or abscess without bleeding; K64.9 Unspecified hemorrhoids; Z90.49 Acquired absence of other specified parts of digestive tract; G47.33 Obstructive sleep apnea (adult) (pediatric); R53.82 Chronic fatigue, unspecified
CPT/HCPCS: 49565; 49568; J0744; J1170; J2250; J2405; J2704; J3010; J7120

== ENCOUNTER 2017-04-16 17:17 | Emergency (ER) | payer BC ==
[2017-04-16 17:18] VITALS: BMI 25.1
[2017-04-16 17:24] VITALS: BP 125/69; PULSE 91; RESP 18; TEMP 98.3; O2SAT 96
--- NOTE | 2017-04-16 17:42 | ED PDOC ---
Arrival/HPI - General Chief Complaint: Palpitations Time Seen by Provider: 04/16/17 17:27 Historian: Patient - History of Present Illness Narrative History of Present Illness (Text): 04/16/17 17:38 A 61 year old male, whose past medical history includes wpw, brought into the emergency department by EMS complaining of intermittent palpitations for 1 week. Patient reports he was recently placed on a z-pack for a cough and believes his symptom could be related to the medication. Patient denies any fever, chills, nausea, vomiting, abdominal pain, chest pain, shortness of breath or any other complaints. Time/Duration: 1 week Symptom Course: Intermittent Context: Home Past Medical History - Provider Review Nursing Documentation Reviewed: Yes - Infectious Disease Hx of Infectious Diseases: None - Cardiac Other/Comment: WPW sydrome- had ablation 2009 - Pulmonary Hx Respiratory Disorders: No - Neurological Hx Paralysis: No - HEENT Hx HEENT Disorder: No - Renal Hx Renal Disorder: No - Endocrine/Metabolic Hx Endocrine Disorders: No - Hematological/Oncological Hx Blood Transfusions: No Hx Blood Transfusion Reaction: No - Integumentary Hx Dermatological Disorder: No - Musculoskeletal/Rheumatological Hx Musculoskeletal Disorders: No - Gastrointestinal Hx Gastrointestinal Disorders: Yes (hernia) - Genitourinary/Gynecological Hx Genitourinary Disorders: No - Psychiatric Hx Substance Use: No - Surgical History Hx Cholecystectomy: Yes - Anesthesia Hx Anesthesia Reactions: Yes (SEVERE NAUSEA/VOMITING X 1-2 DAYS FOLLOWING GENERAL ANESTHESIA) Hx Malignant Hyperthermia: No - Suicidal Assessment Feels Threatened In Home Enviroment: No Family/Social History - Physician Review Nursing Documentation Reviewed: Yes Family/Social History: No Known Family HX Smoking Status: Never Smoked Hx Alcohol Use: No Hx Substance Use: No Allergies/Home Meds Allergies/Adverse Reactions: Allergies Penicillins Allergy (Severe, Verified 02/06/17 10:20) TONGUE SWELLS Sulfa (Sulfonamide Antibiotics) Allergy (Severe, Verified 02/06/17 10:20) DIZZINESS fruit Allergy (Severe, Uncoded 02/06/17 10:20) RASH,ORAL SWELLING PEACHES,NECTARINES,PLUMS HAZELNUTS Allergy (Severe, Uncoded 02/06/17 10:21) ORAL SWELLING Home Medications: Home Meds Medication Instructions Recorded Confirmed clonazePAM [Klonopin] 2 mg PO HS 11/04/16 04/16/17 Acetylcysteine [Nac] 500 mg PO DAILY 02/06/17 04/16/17 Ascorbic Acid [Vitamin C] 1,000 mg PO DAILY 02/06/17 04/16/17 Cholecalciferol (Vitamin D3) 1 tab PO DAILY 02/06/17 04/16/17 [D3-5000 90 mg-5000 Iu] Multivitamin [Daily Anca] 1 tab PO DAILY 02/06/17 04/16/17 [place]-3 Fatty Acids/Fish Oil [Fish 1,000 mg PO DAILY 02/06/17 04/16/17 Oil 1,000 mg Capsule] Ubidecarenone [Coq-10] 100 mg PO DAILY 02/06/17 04/16/17 Review of Systems - Physician Review All systems were reviewed & negative as marked: Yes - Review of Systems Constitutional: absent: Fevers, Night Sweats Respiratory: Cough (improving). absent: SOB Cardiovascular: Palpitations. absent: Chest Pain Gastrointestinal: absent: Abdominal Pain, Nausea, Vomiting Physical Exam Vital Signs Reviewed: Yes Vital Signs Temp Pulse Resp BP Pulse Ox 04/16/17 17:18 98.3 F 91 H 18 125/69 96 Temperature: Afebrile Blood Pressure: Normal Pulse: Tachycardic Respiratory Rate: Normal Appearance: Positive for: Well-Appearing, Non-Toxic, Comfortable Pain Distress: None Mental Status: Positive for: Alert and Oriented X 3 - Systems Exam Head: Present: Atraumatic, Normocephalic Pupils: Present: PERRL Extroacular Muscles: Present: EOMI Conjunctiva: Present: Normal Mouth: Present: Moist Mucous Membranes Neck: Present: Normal Range of Motion Respiratory/Chest: Present: Clear to Auscultation, Good Air Exchange. No: Respiratory Distress, Accessory Muscle Use Cardiovascular: Present: Regular Rate and Rhythm, Normal S1, S2. No: Murmurs Abdomen: Present: Normal Bowel Sounds. No: Tenderness, Distention, Peritoneal Signs Back: Present: Normal Inspection Upper Extremity: Present: Normal Inspection. No: Cyanosis, Edema Lower Extremity: Present: Normal Inspection. No: Edema Neurological: Present: GCS=15, CN II-XII Intact, Speech Normal Skin: Present: Warm, Dry, Normal Color. No: Rashes Psychiatric: Present: Alert, Oriented x 3, Normal Insight, Normal Concentration Medical Decision Making ED Course and Treatment: 04/16/17 17:38 Impression: A 61 year old male with intermittent palpitations Plan: -- Chest xray -- EKG -- Labs -- Urinalysis -- Reassess and disposition Progress Notes: EKG shows NSR at [address]/T wave changes. Interpreted by me. 04/20/17 07:[address] madrigal, agrees with outpt management as pt cp free symptom free. pt is asking to be dc home. - Lab Interpretations Lab Results: 04/16/17 18:00 04/16/17 18:00 Lab Results 04/16/17 18:00: Sodium 142, Potassium 4.1, Chloride 103, Carbon Dioxide 27, Anion Gap 16, BUN 12, Creatinine 0.9, Est GFR ( Amer) > 60, Est GFR (Non- Af Amer) > 60, Random Glucose 102, Calcium 9.4, Magnesium 2.2, Total Bilirubin 0.5, AST 26, ALT 29, Alkaline Phosphatase 59, Lactate Dehydrogenase 355, Total Creatine Kinase 121, Troponin I < 0.01, Total Protein 7.2, Albumin 4.2, Globulin 3.1, Albumin/Globulin Ratio 1.4 04/16/17 18:00: Urine Color Yellow, Urine Appearance Clear, Urine pH 6.0, Ur Specific [place] 1.015, Urine Protein Negative, Urine Glucose (UA) Negative, Urine Ketones Negative, Urine Blood Negative, Urine Nitrate Negative, Urine Bilirubin Negative, Urine Urobilinogen 0.2, Ur Leukocyte Esterase Negative 04/16/17 18:00: PT 11.7, INR 1.03, APTT 34.1 04/16/17 18:00: WBC 7.2, RBC 5.49, Hgb 15.3, Hct 46.5, MCV 84.7, MCH 27.9, MCHC 32.9, RDW 14.8 H, Plt Count 253, MPV 10.5, Gran % 70.8 H, Lymph % (Auto) 19.1 L , [place] % (Auto) 7.9 H, Eos % (Auto) 1.5, Baso % (Auto) 0.7, Gran # 5.13, Lymph # (Auto) 1.4, [place] # (Auto) 0.6, Eos # (Auto) 0.1, Baso # (Auto) 0.05 I have reviewed the lab results: Yes - RAD Interpretation Radiology Orders: 04/16/17 17:36 CHEST PORTABLE [RAD] Stat - Scribe Statement The provider has reviewed the documentation as recorded by the Scribe Xochitl Cardoso Provider Scribe Attestation: All medical record entries made by the Scribe were at my direction and personally dictated by me. I have reviewed the chart and agree that the record accurately reflects my personal performance of the history, physical exam, medical decision making, and the department course for this patient. I have also personally directed, reviewed, and agree with the discharge instructions and disposition. Disposition/Present on Arrival - Present on Arrival Any Indicators Present on Arrival: No History of DVT/PE: No History of Uncontrolled Diabetes: No Urinary Catheter: No History of Decub. Ulcer: No History Surgical Site Infection Following: None - Disposition Have Diagnosis and Disposition been Completed?: Yes Diagnosis: Palpitations Disposition: HOME/ ROUTINE Disposition Time: 07:00 Condition: STABLE Discharge Instructions (ExitCare): Palpitations Additional Instructions: return to er with worsening symptoms or concerns. please follow up with your doctor. Referrals: Hussein Madrigal DO [Primary Care Provider] - Follow up with primary Forms: [employer] (Pashto)
[2017-04-16 18:37] LABS: BASO # 0.05 K/mm3 (0.0-2.0); BASO % 0.7 % (0.0-3.0); EOS # 0.1 (0.0-0.7); EOS % 1.5 % (1.5-5.0); GRAN # 5.13 (1.4-6.5); GRAN % 70.8 % (50.0-68.0); HEMOGLOBIN 15.3 g/dL (14.0-18.0); LYMPH # 1.4 (1.2-3.4); LYMPH % 19.1 % (22.0-35.0); MEAN CELL VOLUME 84.7 fl (80.0-105.0); MEAN CORPUSCULAR HEMOGLOBIN 27.9 pg (25.0-35.0); MEAN CORPUSCULAR HGB CONC 32.9 g/dl (31.0-37.0); MEAN PLATELET VOLUME 10.5 fl (7.0-11.0); MONO # 0.6 (0.1-0.6); MONO % 7.9 % (1.0-6.0); RBC 5.49 10^6/uL (3.5-6.1); RED CELL DISTRIBUTION WIDTH 14.8 % (11.5-14.5); WHITE BLOOD COUNT 7.2 10^3/ul (4.5-11.0)
[2017-04-16 18:38] LABS: URINE APPEARANCE CLEAR (CLEAR); URINE BILIRUBIN NEGATIVE (NEGATIVE); URINE BLOOD NEGATIVE (NEGATIVE); URINE COLOR YELLOW (YELLOW); URINE GLUCOSE (UA) NEGATIVE (NEGATIVE); URINE LEUKOCYTE ESTERASE NEGATIVE Leu/uL (NEGATIVE); URINE NITRATE NEGATIVE (NEGATIVE); URINE PROTEIN NEGATIVE mg/dL (<30 mg/dL); URINE UROBILINOGEN 0.2 E.U./dL (<1 E.U./dL)
[2017-04-16 18:47] LABS: INR 1.03 (0.93-1.08); PARTIAL THROMBOPLASTIN TIME 34.1 Seconds (25.1-36.5); PROTHROMBIN TIME 11.7 SECONDS (9.4-12.5)
[2017-04-16 18:49] LABS: ALB/GLOB RATIO 1.4 (1.1-1.8); ALBUMIN 4.2 g/dL (3.0-4.8); ALT/SGPT 29 U/L (7-56); AST/SGOT 26 U/L (17-59); BLOOD UREA NITROGEN 12 mg/dL (7-21); CALCIUM 9.4 mg/dL (8.4-10.5); GFR AFRICAN-AMERICAN > 60; GFR NON-AFRICAN AMERICAN > 60; MAGNESIUM 2.2 mg/dL (1.7-2.2)
[2017-04-16 18:59] LABS: TROPONIN I < 0.01 ng/mL
--- NOTE | 2017-04-17 09:18 | RAD ---
HISTORY: cp COMPARISON: 11/04/2016 FINDINGS: LUNGS: No active pulmonary disease. PLEURA: No significant pleural effusion identified, no pneumothorax apparent. CARDIOVASCULAR: Normal. OSSEOUS STRUCTURES: No significant abnormalities. VISUALIZED UPPER ABDOMEN: Normal. OTHER FINDINGS: None. IMPRESSION: No active disease.
--- NOTE | 2017-04-17 22:19 | CARD ---
APPROVED REPORT EKG Measurement Heart [id number] <Conclusion> Normal sinus rhythm Normal ECG
== END 2017-04-16 19:21 | disposition home or self-care (01) ==
LOC: ED 17:17
DX: R00.2 Palpitations (principal); I45.6 Pre-excitation syndrome